=== PATIENT | male | born 2000 | race Caucasian/White ===

== ENCOUNTER → 2025-07-20 | Outpatient (CLI) | payer OTHER, SELFPAY ==
[2025-07-20 17:10] LABS: Hematocrit 46.4 % (40-54); Hemoglobin 15.7 g/dL (13.0-16.5); Immature Granulocytes Count 0.010 X10^3/uL (0.0-0.0); Mean Corp Hgb Conc 33.8 g/dL (32-36); Mean Corpuscular Volume 90.8 fL (80-94); Mean Platelet Vol. 9.3 fl (6.2-12.0); NRBC Flagged by Analyzer 0 % (0-5); Platelet Count 197 K/mm3 (150-450); RBC Distribution Width CV 11.8 % (11.6-14.6); RBC Distribution Width SD 39.2 fl (35.1-43.9); Red Blood Count 5.11 M/mm3 (4.6-6.2); White Blood Count 5.2 K/mm3 (4.4-11.0)
[2025-07-20 17:47] LABS: AST(SGOT) 27 U/L (<=37); Alanine Aminotransfer ALT/SGPT 19 U/L (<=46); Albumin, Serum 4.8 g/dL (3.5-5.0); Alkaline Phosphatase 70 U/L (40-129); Anion Gap 12 (5-15); BUN 17 mg/dL (4-19); BUN/Creat Ratio 19.5 RATIO (10-20); Calcium,Total 10.0 mg/dL (7.6-11.0); Carbon Dioxide 28.3 mmol/L (21.0-32.0); Chloride 100 mmol/L (98-108); Ferritin 168 ng/mL (37-417); Globulin 3.0 g/dL (2.2-4.2); Glucose 99 mg/dL (70-99); Iron 135 ug/dL (65-175); Iron Binding Capacity,Total 318 ug/dL (250-450); Iron Binding Capacity,Unsat 183 ug/dL (228-428); Potassium 4.0 mmol/L (3.3-5.1); Vitamin B12 831 pg/mL (180-914); Vitamin D,25 Hydroxy 40.9 ng/mL (30-100)
== END | disposition home or self-care (01) ==
LOC: VSLAB 16:11
PROVIDERS: Referring Provider Nurse Practitioner Family; Visit Provider Nurse Practitioner Family
DX: R53.83 Other fatigue (principal)
CPT/HCPCS: 36415; 80053; 82306; 82607; 82728; 83540; 83550; 84439; 84443; 85025

== ENCOUNTER → 2025-08-15 | Outpatient (CLI) | payer OTHER, SELFPAY ==
[2025-08-17 18:08] LABS: Barley, Whole Grain <0.10 kU/L (Class 0); Egg, Whole <0.10 kU/L (Class 0); Hazelnut/Filbert <0.10 kU/L (Class 0); Pistachio Nut <0.10 kU/L (Class 0); Potato, White <0.10 kU/L (Class 0); Turkey <0.10 kU/L (Class 0)
[2025-08-20 00:07] LABS: Egg, White <0.10 kU/L (Class 0); SCALLOP <0.10 kU/L (Class 0); SESAME SEED <0.10 kU/L (Class 0); Walnut, (Food) <0.10 kU/L (Class 0)
== END | disposition home or self-care (01) ==
LOC: LAB 09:53
PROVIDERS: PCP Nurse Practitioner Family; Visit Provider Otolaryngology Otolaryngology/Facial Plastic Surgery
DX: T78.40XA Allergy, unspecified, initial encounter (principal); X58.XXXA Exposure to other specified factors, initial encounter
CPT/HCPCS: 36415; 86003